=== PATIENT | male | born 1975 | race Caucasian/White ===

== ENCOUNTER → 2021-01-18 | Outpatient (CLI) | payer OTHER ==
--- NOTE | 2021-01-18 09:13 | US ---
EXAMINATION TYPE: US duplex aorta DATE OF EXAM: 01/18/2021 COMPARISON: NONE CLINICAL HISTORY: F17.210 Nicotine dependence, Z82.49 Fam hx. EXAM MEASUREMENTS: Abdominal Aorta: Proximal: 2.3cm by 2.1 cm Mid: 2.0cm by 2.2 cm Distal: 1.6cm by 1.6 cm Bifurcation: Right: 1.1cm by 0.9 Left 0.9cm by 1.0 cm Aorta successfully visualized through the bifurcation IMPRESSION: No ultrasound evidence for AAA
== END | disposition home or self-care (01) ==
LOC: RADUSWWP 07:09
PROVIDERS: ATTEND Family Medicine
DX: F17.200 Nicotine dependence, unspecified, uncomplicated (principal); Z82.49 Family history of ischemic heart disease and other diseases of the circulatory system
CPT/HCPCS: 93979